=== PATIENT | female | born 1970 | race Caucasian/White ===

== ENCOUNTER 2017-12-19 09:19 | Emergency (ER) | payer OTHER ==
[2017-12-19 09:37] VITALS: BP 130/91
--- NOTE | 2017-12-19 10:16 | EDM.PDOC ---
ED HPI GENERAL MEDICAL PROBLEM - General Chief Complaint: Lower Extremity Injury/Pain Stated Complaint: L LEG INJURY Time Seen by Provider: 12/19/17 09:38 Source of Information: Reports: Patient History Limitations: Reports: No Limitations - History of Present Illness INITIAL COMMENTS - FREE TEXT/NARRATIVE: The patient presents with left lower leg pain. 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 She has no other injuries. She had moderate edema to her leg. She can bear weight but she is using a walker to get around. She has no chest pain or shortness of breath. She has no history of PE or DVT. Onset: Sudden Duration: Day(s): (3) Location: Reports: Lower Extremity, Left Quality: Reports: Sharp Severity: Moderate Improves with: Reports: Immobilization Worsens with: Reports: Movement Context: Reports: Trauma (She was hit by a cow) Associated Symptoms: Reports: No Other Symptoms Left Lower Leg Pain Score (Numeric/FACES): 4 - Related Data Allergies Allergy/AdvReac Type Severity Reaction Status Date / Time No Known Allergies Allergy Verified 02/24/15 14:17 Home Meds: Home Meds hydrOXYzine Pamoate [Vistaril] 50 mg PO BEDTIME 02/24/15 [History] Cholecalciferol (Vitamin D3) [Vitamin D3] 0 mg PO DAILY 12/19/17 [History] Gabapentin [Neurontin] 800 mg PO BID 12/19/17 [History] Simvastatin [Zocor] 10 mg PO DAILY 12/19/17 [History] Past Medical History Cardiovascular History: Reports: High Cholesterol Social & Family History - Tobacco Use Smoking Status *Q: Never Smoker - Caffeine Use Caffeine Use: Reports: Coffee - Alcohol Use Days Per Week of Alcohol Use: 0 - Recreational Drug Use Recreational Drug Use: No Review of Systems - Review of Systems Review Of Systems: See Below Constitutional: Reports: No Symptoms Ears: Reports: No Symptoms Nose: Reports: No Symptoms Mouth/Throat: Reports: No Symptoms Respiratory: Reports: No Symptoms Cardiovascular: Reports: No Symptoms GI/Abdominal: Reports: No Symptoms Genitourinary: Reports: No Symptoms Musculoskeletal: Reports: Other (Pain and edema to the left lower leg) ED EXAM, GENERAL - Physical Exam Exam: See Below Exam Limited By: No Limitations General Appearance: Alert, No Apparent Distress Ears: Normal External Exam Nose: Normal Inspection Head: Atraumatic, Normocephalic Neck: Normal Inspection Respiratory/Chest: No Respiratory Distress Extremities: Other (Moderate edema and ecchymosis with pain upon palpation to the left lower leg. Good sensation and pulses distally. No pain to the ankle or knee.) Course - Vital Signs Last Recorded V/S: Last Vital Signs Temp 99.5 F 12/19/17 09:36 Pulse 81 12/19/17 09:36 Resp 20 12/19/17 09:36 BP 130/91 H 12/19/17 09:36 Pulse Ox 95 12/19/17 09:36 - Orders/Labs/Meds Orders: Active Orders 24 hr Category Date Time Status Tibia Fibula Lt [CR] Stat Exams 12/19/17 09:41 Taken - Re-Assessments/Exams Free Text/Narrative Re-Assessment/Exam: 12/19/17 10:18 Her x-ray shows no rico injury just edema. 12/19/17 10:40 There is no fracture seen on x-ray. I will discharge her home. Departure - Departure Time of Disposition: 10:45 Disposition: Home, Self-Care 01 Condition: Good Clinical Impression: Contusion of left lower leg Qualifiers: Encounter type: initial encounter Qualified Code(s): S80.12XA - Contusion of left lower leg, initial encounter - Discharge Information Referrals: Delmy German DO [Primary Care Provider] - 1 Week Forms: ED Department Discharge Additional Instructions: Ice your leg for 15 minutes 3 times per day and elevate your leg above your heart as much as you can for 3 days to reduce the swelling in your leg. Take tylenol or motrin for any pain. Please return if you are worse or follow up with your doctor. - My Orders Last 24 Hours: My Active Orders 12/19/17 09:41 Tibia Fibula Lt [CR] Stat - Assessment/Plan Last 24 Hours: My Active Orders 12/19/17 09:41 Tibia Fibula Lt [CR] Stat
--- NOTE | 2017-12-19 11:08 | CR ---
Left tibia and fibula: AP and lateral views of the left tibia and fibula were obtained. Comparison: No previous study. Soft tissue swelling is identified. No fracture or other bony abnormality is seen. Impression: 1. Soft tissue swelling. No bony abnormality is identified on left tibia and fibula study. Diagnostic code #2
== END 2017-12-19 11:05 | disposition home or self-care (01) ==
LOC: JD.ED 09:19
DX: S80.12XA Contusion of left lower leg, initial encounter (principal); E78.00 Pure hypercholesterolemia, unspecified; W55.29XA Other contact with cow, initial encounter; Y93.K9 Activity, other involving animal care
CPT/HCPCS: 73590-26-LT; 73590-LT; 99283; 99284